=== PATIENT | female | born 1990 | race Caucasian/White ===

== ENCOUNTER 2018-03-06 04:36 | Inpatient (IN) | payer OTHER ==
[2018-03-06] MEDS ORDERED: PHENYLEPHRINE-NS 100 MCG/ML 10 ML SYRINGE ONE ×3 (09:40→13:00)
[2018-03-06] MEDS ORDERED: Ondansetron HCl/PF 4 MG/2 ML Vial ONE ×2 (09:40→12:53)
[2018-03-06] MEDS ORDERED: Ketorolac Tromethamine 30 MG/ML VIAL ONE ×2 (09:40→12:53)
[2018-03-06 10:12] VITALS: BMI 30.6
[2018-03-06] MEDS ORDERED: Promethazine HCl 25 MG/ML VIAL IM PRN ×2 (10:13→14:11)
[2018-03-06] MEDS ORDERED: CEFAZOLIN/Water 2 GM/20 ML SYRINGE SLOW IVP SCH (10:13)
[2018-03-06] MEDS ORDERED: Ondansetron HCl/PF 4 MG/2 ML Vial IVP PRN ×2 (10:13→14:11)
[2018-03-06] MEDS ORDERED: Bicitra 30 ML UDCUP PO SCH (10:13)
[2018-03-06] MEDS: Lactated Ringer's 1,000 ML IV SCH ×2 (10:27→18:35)
[2018-03-06 10:47] LABS: Mean Corpuscular HGB CONC 33.3 g/dL (32.0-36.0); Mean Corpuscular Hemoglobin 30.3 pg (27.0-31.0); Mean Corpuscular Volume 90.9 fL (78.0-98.0); Mean Platelet Volume 6.9 fL (7.4-10.4); Platelet Count 327 thou/uL (130-400); RBC Distribution Width 12.4 % (11.5-14.5); Red Blood Cell (RBC) Count 3.97 mill/uL (4.20-5.40); White Blood Cell (WBC) Count 10.7 thou/uL (4.8-10.8)
[2018-03-06 11:17] LABS: HBSAg Index 0.19 S/CO (0-0.99); Hep B Surf Ag Non-Reactive S/CO (NonReactive); Syphilis Antibody Nonreactive (Nonreactive); Syphilis Antibody Index 0.07 S/CO (<1.00 Non-Reactive)
[2018-03-06] MEDS ORDERED: Bicitra 30 ML UDCUP ONE (11:49)
[2018-03-06] MEDS ORDERED: Morphine PF 1 MG/ML SYR ONE (12:16)
[2018-03-06] MEDS ORDERED: Bupivacaine 0.75% W/DEXTROSE 8.25% 2 ML AMP ONE (12:17)
[2018-03-06] MEDS ORDERED: Lidocaine 1% PF 5 ML VIAL ONE (12:17)
[2018-03-06] MEDS ORDERED: Oxytocin 10 UNITS/ML VIAL ONE (12:18)
[2018-03-06] MEDS ORDERED: ePHEDrine/0.9% NaCl/PF SYRINGE 50 mg/10 ml ONE (12:23)
[2018-03-06] MEDS ORDERED: Meperidine HCl/PF 25 MG/ML VIAL SLOW IVP PRN (14:11)
[2018-03-06] MEDS ORDERED: diphenhydrAMINE 50 MG/ML VIAL IVP PRN (14:11)
[2018-03-06] MEDS ORDERED: Eucerin (Mineral Oil/Petrolatum,White) 30 gm Jar TOP PRN (14:11)
[2018-03-06] MEDS ORDERED: HYDROmorphone 2 MG/ML VIAL SLOW IVP PRN (14:11)
[2018-03-06] MEDS ORDERED: Naloxone HCl 0.4 mg/ml Vial IV PRN (14:11)
[2018-03-06] MEDS ORDERED: Promethazine HCl 25 MG SUPP PR PRN (14:11)
[2018-03-06] MEDS ORDERED: Naloxone HCl 0.4 mg/ml Vial IVP PRN ×2 (14:11)
[2018-03-06] MEDS ORDERED: Communication Order-Pharmacy FS SCH (14:15)
[2018-03-06] MEDS ORDERED: Meperidine HCl/PF 25 MG/ML VIAL SLOW IVP SCH (16:45)
--- NOTE | 2018-03-06 16:47 | PDOC.LDHP ---
Labor and Delivery H&P Chief complaint: scheduled section Current gestational age (weeks): 39 Due date: 03/12/18 Grav: 4 Para: 1 Current complications: none Abnormal US findings: No Current medications: pre-payam vitamins Previous surgical history: low tranverse CS Allergies/Adverse Reactions: Allergies Allergy/AdvReac Type Severity Reaction Status Date / Time No Known Allergies Allergy Unverified 03/06/18 10:12 - Physical Exam Vital signs reviewed and normal: yes General: NAD Heart: RRR Lungs: CTAB Abdomen: gravid Extremeties: no edema FHT: category 1 - OB Labs RH: negative - Assessment L&D Assessment: scheduled repeat section - Plan Plan: admit to L&D -: Repeat 2nd today.
[2018-03-06] MEDS ORDERED: NS / Oxytocin 40 units/1000ml 1,000 ML ONE (17:02)
[2018-03-06] MEDS: NS / Oxytocin 40 units/1000ml 1,000 ML IV SCH (18:35)
--- NOTE | 2018-03-06 19:20 | OP-2 ---
DATE OF PROCEDURE: 03/06/2018 PREOPERATIVE DIAGNOSIS: Intrauterine at 39 weeks and 1 day with history of previous suzie an section, who is scheduled for repeat section today. POSTOPERATIVE DIAGNOSIS: Intrauterine at 39 weeks and 1 day with history of previous zoë nathan section, who is scheduled for repeat section today. PROCEDURE: Repeat low transverse section. FINDINGS: Viable male weighing 3755 grams or 8 pounds 4 ounces, Apgars 9 and 9. QUANTITATIVE BLOOD LOSS: 535 mL COMPLICATIONS: None. DETAILS OF THE PROCEDURE: The patient was consented and taken back to the operating room where spina l anesthesia was found to be adequate. She was then prepped and draped in the normal sterile fashion . A time out was performed by the entire operative team. The incision was then marked with a marking pen tested using sharp pickups. An incision was then made with a scalpel. The incision was carried through the adipose tissue down to the underlying rectus fascia using both sharp dissection as well as cautery. Once the fascia was identified, it was incised in the midline and then the fascial incis ion was carried through in both lateral directions using sharp as well as cautery dissection techniqu es. Next, the superior aspect of the rectus fascia was grasped with 2 Megha clamps which was tented up and the rectus muscles were dissected off using blunt dissection as well as cautery dissection. Similarly, the inferior aspect of the fascial incision was grasped with 2 Megha clamps, tented up an d the rectus muscles were dissected off bluntly as well as sharply. Next, the rectus muscles were se parated in the midline and the peritoneum identified. The peritoneum was then carefully grasped with two hemostats and entered sharply. The peritoneal incision was extended superiorly and inferiorly a nd bladder blade was placed in the lower abdomen. At this point, the uterus was identified and the b ladder flap was then developed using pickups with teeth as well as Metzenbaum scissors in both latera l directions. The bladder flap was then dissected downwards using the head cd reactor operator's finger as well as M etzenbaum scissors. The bladder blade was replaced. The lower uterine segment was then identified a nd entered sharply using a clean scalpel. The uterine incision was then dissected downwards until th in layer of muscle remained and this was entered bluntly using a hemostat to avoid any injury to the baby. The uterine incision was then stretched using two fingers in both lateral directions. An amniotomy was performed artificially using a hemostat and the baby was delivered using fundal pres sure in a gentle fashion. Once out, the baby's mouth and nose were bulb suctioned, cord clamped and cut, and the baby was handed to waiting attendants. Next, the uterus was exteriorized, cleared of al l clots and debris and the uterine incision was repaired with #1 Monocryl in a running locking fashio n. A second suture of the same type was used to obtain complete hemostasis at the uterine incision. The bladder flap was reapproximated using 3-0 Monocryl. Next, patient's left and right adnexa were inspected and appeared to be within normal limits. The posterior cul-de-sac was blotted dry and hemo stasis assured. One more look at the uterine incision demonstrated hemostasis. Next, the uterus was replaced back within the abdomen. The peritoneum was reapproximated using 2-0 Monocryl without diff iculty. The rectus muscles were then allowed to come back together and 0 chromic was used to aid in reapproximation of the muscle as necessary. The rectus fascia was then reapproximated in a running f ashion using 0 Vicryl suture. The adipose tissue was then examined and appeared to be well approxima jaylin without any obvious separations. Finally, the skin was reapproximated with 3-0 Monocryl on a Seb th needle without difficulty and Dermabond adhesive was applied to the skin. Once the glue was dry, the drapes were removed and the patient was transferred to an ambulatory bed where she was taken to [facility] awake and in stable condition. Sponge, lap, and needle counts were correct x3.
[2018-03-06] MEDS: Ketorolac Tromethamine 30 MG/ML VIAL IVP PRN (22:12)
[2018-03-07] MEDS: Lactated Ringer's 1,000 ML IV SCH ×3 (00:28→17:45)
--- NOTE | 2018-03-07 02:41 | PDOC.PP ---
Post Progress Note Post Day #: 1 Subjective: Post op doing well, still has hammond in place PO intake tolerated: yes Flatus: yes Ambulation: yes Vital Signs (12 hours) Temp Pulse Resp BP BP Pulse Ox 03/07/18 02:23 18 03/07/18 00:00 98.2 F 89 20 106/60 03/06/18 22:00 18 03/06/18 20:00 98.3 F 90 18 113/72 97 03/06/18 18:00 97.7 F 80 20 109/63 03/06/18 17:00 97.7 F 80 20 109/63 100 03/06/18 16:45 97.5 F L 90 16 107/65 03/06/18 15:45 97.7 F 88 16 109/74 Weight Weight 184 lb - Physical Examination General: NAD Cardiovascular: no m/r/g Respiratory: clear to auscultation bilaterally Abdominal: + bowel sounds, lochia, no distention, appropriately TTP Extremities: negative homans (B) Neurological: no gross focal deficits Psychiatric: A&Ox3, normal affect Result Diagrams: 03/06/18 10:33 Additional Labs: Post Labs Blood Type A NEGATIVE 03/06/18 10:33 Hep Bs Antigen Non-Reactive S/CO (NonReactive) 03/06/18 10:33 (1) delivery delivered Code(s): O82 - ENCOUNTER FOR DELIVERY WITHOUT INDICATION Status: Acute - Assessment/Plan Patient of Dmitry Wheatley, postop day 1. Doing well. POD 1 care. Hammond to be removed this am. I encouraged ambulation. SCDs in place currently. BPs within normal range. Continue postop care
[2018-03-07] MEDS: Ketorolac Tromethamine 30 MG/ML VIAL IVP PRN (04:23)
[2018-03-07] MEDS: NS / Oxytocin 40 units/1000ml 1,000 ML IV SCH ×3 (04:28→17:45)
[2018-03-07] MEDS ORDERED: Ondansetron HCl/PF 4 MG/2 ML Vial IVP PRN (08:28)
[2018-03-07] MEDS ORDERED: Adacel (T-DAP) 0.5 ML VIAL IM ONE (08:28)
[2018-03-07] MEDS ORDERED: Acetaminophen 325 MG TAB PO PRN (08:28)
[2018-03-07 09:16] LABS: Hemoglobin 11.5 g/dL (12.0-16.0); Mean Corpuscular HGB CONC 33.2 g/dL (32.0-36.0); Mean Corpuscular Hemoglobin 30.6 pg (27.0-31.0); Mean Corpuscular Volume 92.1 fL (78.0-98.0); Mean Platelet Volume 6.9 fL (7.4-10.4); Platelet Count 308 thou/uL (130-400); RBC Distribution Width 12.5 % (11.5-14.5); Red Blood Cell (RBC) Count 3.75 mill/uL (4.20-5.40); White Blood Cell (WBC) Count 11.9 thou/uL (4.8-10.8)
[2018-03-07] MEDS: HYDROcodone/Acetaminophen 5/325 mg Tablet PO PRN ×4 (10:19→22:03)
[2018-03-07] MEDS: Prenatal Vitamin 1 TAB PO SCH (10:23)
[2018-03-07] MEDS: Ibuprofen 800 MG TAB PO SCH ×2 (13:58→21:04)
[2018-03-07] MEDS: Simethicone Chewable 80 MG TAB PO PRN ×2 (14:19→18:03)
[2018-03-08] MEDS: Simethicone Chewable 80 MG TAB PO PRN ×3 (04:44→21:35)
[2018-03-08] MEDS: HYDROcodone/Acetaminophen 5/325 mg Tablet PO PRN ×5 (04:44→21:31)
[2018-03-08] MEDS: Ibuprofen 800 MG TAB PO SCH ×3 (04:44→21:31)
[2018-03-08] MEDS: NS / Oxytocin 40 units/1000ml 1,000 ML IV SCH ×3 (04:46→17:01)
[2018-03-08] MEDS: Lactated Ringer's 1,000 ML IV SCH ×3 (04:47→17:01)
[2018-03-08] MEDS: Prenatal Vitamin 1 TAB PO SCH (08:47)
--- NOTE | 2018-03-08 09:11 | PRG ---
DATE OF SERVICE: 03/08/2018 PRIMARY OB: Dr. Hugh Wheatley. SUBJECTIVE: The patient is a 27-year-old female who is postop day #2 status post a scheduled repeat at 39 weeks. The patient reports today that she is tolerating p.o., but purposely not eati ng much because she has not had a bowel movement. The patient has been voiding, has had a decent morgan n control. PHYSICAL EXAMINATION: VITAL SIGNS: Most recently has blood pressure 103/65, temperature 97.8, pulse of 89, respiratory rat e of 18. GENERAL: She appears to be in no acute distress. She is alert and oriented, cooperative and pleasan t to interact with. HEENT: Head is normocephalic, atraumatic. ABDOMEN: Fundus is firm. Incision is clean, dry, and intact with Dermabond. LABORATORY STUDIES: Most recent hemoglobin postoperatively is 11.5, hematocrit 14.6, platelets of 30 8,000. ASSESSMENT AND PLAN: The patient is postoperative day #2 status post a repeat scheduled . We will continue postoperative care and anticipate discharge tomorrow.
--- NOTE | 2018-03-08 12:04 | PDOC.PP ---
Post Progress Note Post Day #: 2 PO intake tolerated: yes Flatus: yes Ambulation: yes Vital Signs (12 hours) Temp Pulse Resp BP Pulse Ox 03/08/18 08:00 99 03/08/18 07:50 98.8 F 79 16 104/64 99 Weight Weight 184 lb - Physical Examination General: NAD Cardiovascular: no m/r/g Respiratory: clear to auscultation bilaterally Abdominal: + bowel sounds Extremities: negative homans (B) Neurological: no gross focal deficits Psychiatric: A&Ox3 Result Diagrams: 03/07/18 09:04 Additional Labs: Post Labs Blood Type A NEGATIVE 03/06/18 10:33 Hep Bs Antigen Non-Reactive S/CO (NonReactive) 03/06/18 10:33 - Assessment/Plan Patient doing well. DC to home planned for tomorrow. See orders.
--- NOTE | 2018-03-08 12:13 | OP ---
DATE OF PROCEDURE: 03/06/2018. SURGEON: Hugh Wheatley M.D. PREOPERATIVE DIAGNOSIS: Intrauterine at 39 weeks and 1 day with a scheduled repeat low-transverse section. POSTOPERATIVE DIAGNOSIS: Intrauterine at 39 weeks and 1 day with a scheduled repeat low-transverse section. PROCEDURE: Repeat 2nd Low Transverse Section FINDINGS: Viable male infant weighing 3755 grams, 8 pounds 4 ounces, Apgars of 9 and 9. QUANTITATIVE BLOOD LOSS: 535 mL COMPLICATIONS: None. DETAILS OF THE PROCEDURE: The patient was consented and taken back to the operating room where spinal anesthesia was found to be adequate. She was then prepped and draped in the normal sterile fashion. A time out was performed by the entire operative team. The incision was then marked with a marking pen tested using sharp pickups. An incision was then made with a scalpel. The incision was carried through the adipose tissue down to the underlying rectus fascia using both sharp dissection as well as cautery. Once the fascia was identified, it was incised in the midline and then the fascial incision was carried through in both lateral directions using sharp as well as cautery dissection techniques. Next, the superior aspect of the rectus fascia was grasped with 2 Megha clamps which was tented up and the rectus muscles were dissected off using blunt dissection as well as cautery dissection. Similarly, the inferior aspect of the fascial incision was grasped with 2 Megha clamps, tented up and the rectus muscles were dissected off bluntly as well as sharply. Next, the rectus muscles were in the midline and the peritoneum identified. The peritoneum was then carefully grasped with two hemostats and entered sharply. The peritoneal incision was extended superiorly and inferiorly and bladder blade was placed in the lower abdomen. At this point, the uterus was identified and the bladder flap was then developed using pickups with teeth as well as Metzenbaum scissors in both lateral directions. The bladder flap was then dissected downwards using the resaw operator's finger as well as Metzenbaum scissors. The bladder blade was replaced. The lower uterine segment was then identified and entered sharply using a clean scalpel. The uterine incision was then dissected downwards until thin layer of muscle remained and this was entered bluntly using a hemostat to avoid any injury to the baby. The uterine incision was then stretched using two fingers in both lateral directions. An amniotomy was performed artificially using a hemostat and the baby was delivered using fundal pressure in a gentle fashion. Once out, the baby's mouth and nose were bulb suctioned, cord clamped and cut, and the baby was handed to waiting attendants. Next, the uterus was exteriorized, cleared of all clots and debris and the uterine incision was repaired with #1 Monocryl in a running locking fashion. A second suture of the same type was used to obtain complete hemostasis at the uterine incision. The bladder flap was reapproximated using 3-0 Monocryl. Next, patient's left and right adnexa were inspected and appeared to be within normal limits. The posterior cul-de-sac was blotted dry and hemostasis assured. One more look at the uterine incision demonstrated hemostasis. Next, the uterus was replaced back within the abdomen. The peritoneum was reapproximated using 2-0 Monocryl without difficulty. The rectus muscles were then allowed to come back together and 0 chromic was used to aid in reapproximation of the muscle as necessary. The rectus fascia was then reapproximated in a running fashion using 0 Vicryl suture. The adipose tissue was then examined and appeared to be well approximated without any obvious separations. Finally, the skin was reapproximated with 3-0 Monocryl on a Liam needle without difficulty and Dermabond adhesive was applied to the skin. Once the glue was dry, the drapes were removed and the patient was transferred to an ambulatory bed where she was taken to recovery awake and in stable condition. Sponge, lap, and needle counts were correct x3. MTDD
[2018-03-09] MEDS: HYDROcodone/Acetaminophen 5/325 mg Tablet PO PRN ×3 (01:32→09:25)
[2018-03-09] MEDS: NS / Oxytocin 40 units/1000ml 1,000 ML IV SCH ×2 (01:40→10:16)
[2018-03-09] MEDS: Lactated Ringer's 1,000 ML IV SCH ×2 (02:36→10:16)
[2018-03-09] MEDS: Ibuprofen 800 MG TAB PO SCH (05:33)
[2018-03-09 08:52] VITALS: BP 126/69; TEMP 98.6
[2018-03-09] MEDS: Prenatal Vitamin 1 TAB PO SCH (09:25)
== END 2018-03-09 12:43 | disposition home or self-care (01) | DRG 766 ==
LOC: L&D 09:32 → EDSTATUS 13:16 → 3SW 15:49
PROVIDERS: ADMIT Obstetrics & Gynecology; ATTEND Obstetrics & Gynecology
PROC: 10D00Z1 Extraction of Products of Conception, Low, Open Approach (ICD-10-PCS; principal; 2018-03-06)
PROC: 10907ZC Drainage of Amniotic Fluid, Therapeutic from Products of Conception, Via Natural or Artificial Opening (ICD-10-PCS; 2018-03-06)
DX: O34.211 Maternal care for low transverse scar from previous cesarean delivery (principal); Z3A.39 39 weeks gestation of pregnancy; Z37.0 Single live birth
CPT/HCPCS: 36415; 51702; 85027; 86780; 86850; 86900; 86901; 87340; 90715; J1885; J2001; J2175; J2274; J2405; J2590; J3490

== ENCOUNTER 2020-12-11 08:54 | Emergency (ER) | payer OTHER ==
[2020-12-11 09:40] LABS: #Eosinphils 0.3 thou/uL (0.0-0.7); #Lymphocytes 1.9 thou/uL (1.20-3.40); #Monocytes 0.6 thou/uL (0.11-0.59); #Neutrophils 2.3 thou/uL (1.40-6.50); %Basophils 0.6 % (0.0-1.0); %Lymphocytes 37.9 % (21.0-51.0); %Monocytes 10.9 % (0.0-10.0); %Neutrophils 44.6 % (42.0-75.0); Hemoglobin 12.7 g/dL (12.0-16.0); Mean Corpuscular HGB CONC 34.6 g/dL (32.0-36.0); Mean Corpuscular Hemoglobin 32.6 pg (27.0-31.0); Mean Platelet Volume 7.1 fL (7.4-10.4); Platelet Count 252 thou/uL (130-400); RBC Distribution Width 12.2 % (11.5-14.5); White Blood Cell (WBC) Count 5.1 thou/uL (4.8-10.8)
== END 2020-12-11 12:12 | disposition home or self-care (01) ==
LOC: ERS 08:54 → EEVIPCON 08:54 → ERS 12:12
DX: O03.4 Incomplete spontaneous abortion without complication (principal); Z87.891 Personal history of nicotine dependence
CPT/HCPCS: 36415; 76856; 84702; 85025; 86900; 86901